=== PATIENT | female | born 1950 | race Hispanic/Latino ===

== ENCOUNTER 2020-08-19 11:03 | Outpatient (CLI) | payer BC | END 2020-08-19 11:04 | disposition home or self-care (01) | LOC: CSHCT 11:03 | PROVIDERS: ATTEND Physician Assistant Medical | DX: K56.600 Partial intestinal obstruction, unspecified as to cause (principal); Z86.010 Personal history of colon polyps; R16.0 Hepatomegaly, not elsewhere classified; R93.421 Abnormal radiologic findings on diagnostic imaging of right kidney; K57.30 Diverticulosis of large intestine without perforation or abscess without bleeding; K31.89 Other diseases of stomach and duodenum; Z90.49 Acquired absence of other specified parts of digestive tract; Z90.710 Acquired absence of both cervix and uterus | CPT/HCPCS: 74178; 82565 ==